=== PATIENT | female | born 2000 | race Caucasian/White ===

== ENCOUNTER 2021-10-19 08:58 | Outpatient (RCR) | payer OTHER, SELFPAY ==
--- NOTE | 2021-10-19 09:47 | PTOPEVAL ---
Thank you for referring Elisha Swift to [facility].? The patient is scheduled to be seen for therapy? ____x/week for ___ weeks. Please review, sign, date and return this plan of care ARIADNA. I agree with and certify that the following plan of care is medically necessary. Referring Physician Date Admitting Provider: Attending Provider: Angelia Hull, HUMAN RESOURCES LEADER Referring Provider: *PT Outpatient Evaluation Start: 10/19/21 09:09 Freq: Status: Active Protocol: Document 10/19/21 09:05 [facility] (Rec: 10/19/21 09:47 [facility] [email or web address]) Therapy Assessment Status Assessment Status Assessment Status Evaluation Evaluation Information Problem Diagnosis R patellar subluxation, R LCL strain Onset 09/09/21 Additional Evaluation Detail LEFS = 68% functionally declined Subjective Information patient reports she tried to Query Text:As Reported By Patient/ pickup her boyfriend from the Family floor. she reports the both stumbled and fell to the floor . she reports she is unsure which way the knee buckled. she reports her ortho told her that her knee cap popped out and back in to place, and reports she thinks she injured the LCL at the same time. she reports she has had an MRI of the R knee. she reports she was given a knee brace and sent to skilled PT. she reports she plans to follow up in about 4 weeks. 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 she reports she has to be able to transfer patients, walk, standing, and move about home for house work to return to full work duties. also, prior to injury, no issues with the R knee. Pain Assessment Timing of Pain Assessment Timing of Pain Assessment Assessment Pain Scale Pain Scale Used Numeric (1 - 10) Self Report Pain Assessment Right Knee(s) Reported Pain Level 3 Greatest Pain Intensity 8 Pain Score Pain Score 3: Self Report Interventions Used Interventions U
--- NOTE | 2021-11-05 17:51 | PTOPEVAL ---
Thank you for referring Elisha Swift to [facility].? The patient is scheduled to be seen for therapy? 1-2x/week for 4 visits. Please review, sign, date and return this plan of care ARIADNA. I agree with and certify that the following plan of care is medically necessary. Referring Physician Date Admitting Provider: Attending Provider: Angelia Hull, DOLLYMAN Referring Provider: *PT Outpatient Evaluation Start: 10/19/21 09:09 Freq: Status: Active Protocol: Document 11/05/21 16:58 [facility] (Rec: 11/05/21 17:51 [facility] [email or web address]) Therapy Assessment Status Assessment Status Assessment Status Progress Evaluation Information Problem Diagnosis R patellar subluxation, R LCL strain Onset 09/09/21 Subjective Information Pt has her next ortho Query Text:As Reported By Patient/ appointment on 11/11/21. Her Family pain is improving but she is still having difficulty when performing activities on her feet. Pain Assessment Timing of Pain Assessment Timing of Pain Assessment Assessment Pain Scale Pain Scale Used Numeric (1 - 10) Self Report Pain Assessment Right Knee(s) Reported Pain Level 1 Pain Score Pain Score 1: Self Report Interventions Used Interventions Used By Clinicians Activity or ADL's,Education, Exercise Lower Extremity Range of Motion General Lower Extremity Range of Motion Gross Lower Extremity Range of Motion R knee AROM: 3-0-129 Comments Lower Extremity Muscle Strength Testing General Lower Extremity Strength Gross Lower Extremity Strength R hip flexion: 4+/5 L hip flexion: 5/5 R knee extension: 4-/5 L knee extension: 5/5 Bilateral knee flexion: 5/5 Bilateral ankle dorsiflexion: 5/5 Posture Posture Standing Position Additional Posture Comments Bilateral knee valgus with foot ER. Weight shift onto L LE in stance. Palpation Assessment Palpation Palpation TTP R LCL and lateral joint line. Extremity Circumference Assessment Circumference Assessment Location Right Body Part Knee Site Descriptor ([place]) Jointline Circumference (cm) 44 Noninvolved Side Circumference (cm) 43 Gait Assessment Gait Assessment Additional Ambulation Comments Pt ambulates with antalgic gait without AD. Walks with
--- NOTE | 2021-11-17 13:25 | PTOPREEVAL ---
Evaluation Information Assessment Status Re-evaluation Diagnosis R patellar subluxation, R LCL strain Onset 09/09/21 Subjective Information patient reports she does feel better overall. she reports she has been back to the MD who has cleared her for getting rid of brace and continuing therapy to further improve her strength and stability of the R knee. patient reports continued pain and instability of the R knee. Reported Pain Level Pain Score 0: Self Report Plan of Care PT Services Indicated Yes These treatments will address the objective and functional deficits as defined above. The patient will be advanced safely and appropriately in order for the patient to progress towards his/her prior level of function. Additional exercises will be introduced and as well as a comprehensive home exercise program upon discharge, if needed, ?to ensure carryover of functional gains achieved in the clinic. This treatment plan has been reviewed and agreement upon by the patient.
--- NOTE | 2022-02-08 07:13 | PCPTNOTE ---
PT has been unable to get patients continuation of treatment approved through insurance. as of this date, all progress towards goals will be taken from her most recent evaluation/note. CALDER[place]
== END 2021-11-17 17:00 | disposition home or self-care (01) ==
LOC: CHSPT 08:58
PROVIDERS: Visit Provider Nurse Practitioner Family
DX: M25.361 Other instability, right knee (principal); S83.421A Sprain of lateral collateral ligament of right knee, initial encounter; S83.001A Unspecified subluxation of right patella, initial encounter
CPT/HCPCS: 97014; 97110; 97140; 97161; G0283